=== PATIENT | female | born 1975 ===

== ENCOUNTER 2021-02-09 06:15 | Day surgery (SDC) | payer OTHER ==
[~2021-02-09 06:15] MED LIST: CELLCEPT500 MG PO; FOLIC ACID PO; HYDROXYCHLOROQUINE PO; MEDROL8 MG PO; PROAIR DIGIHAL90 MCG IH; WIXELA 100-501 EACH IH
== END 2021-02-09 15:15 | disposition home or self-care (01) ==
LOC: CIR.AMB 06:15
PROVIDERS: ATTEND Obstetrics & Gynecology
DX: N84.1 Polyp of cervix uteri (principal); Z20.822 Contact with and (suspected) exposure to COVID-19